=== PATIENT | female | born 1965 | race Caucasian/White ===

== ENCOUNTER 2017-11-14 05:30 | Emergency (ER) | payer MEDICAID ==
[~2017-11-14] VITALS: Ht 160 cm; Wt 80.3 kg
[2017-11-14 05:38] VITALS: Ht 160 cm; Wt 80.3 kg
[2017-11-14 06:21] VITALS: BP 131/75
== END 2017-11-14 06:21 | disposition home or self-care (01) ==
LOC: ED 05:30
DX: L50.0 Allergic urticaria (principal)
CPT/HCPCS: J7512

== ENCOUNTER 2017-11-19 22:17 | Emergency (ER) | payer MEDICAID ==
[~2017-11-19] VITALS: Ht 160 cm; Wt 81.8 kg
[2017-11-19 22:58] VITALS: Ht 160 cm; Wt 81.8 kg
[2017-11-20 00:03] VITALS: BP 131/77
== END 2017-11-20 00:03 | disposition home or self-care (01) ==
LOC: ED 22:17
DX: R21 Rash and other nonspecific skin eruption (principal)
CPT/HCPCS: J7512

== ENCOUNTER 2020-06-28 11:03 | Emergency (ER) | payer MEDICAID ==
[~2020-06-28] VITALS: Ht 157.5 cm; Wt 85.3 kg
[2020-06-28 13:05] LABS: BASOPHIL % 0.5 % (0-2); PLATELET COUNT 290 x10^3mcL (130-400)
[2020-06-28 13:06] LABS: CALCIUM 9.6 mg/dL (8.5-10.1); CARBON DIOXIDE 27.3 mmol/L (21-32); CHLORIDE SERUM 106 mmol/L (98-107); CREATININE SERUM 0.5 mg/dL (0.6-1.0); GFR1 > 60 mL/min; GLUCOSE SERUM 91 mg/dL (74-106); POTASSIUM SERUM 3.7 mmol/L (3.5-5.1); SODIUM SERUM 142 mmol/L (136-145)
[2020-06-28 13:19] LABS: ALKALINE PHOSPHATASE 78 U/L (46-116); ALT/SGPT 33 U/L (14-59); AST/SGOT 17 U/L (15-37); BILIRUBIN TOTAL 0.32 mg/dL (0.20-1.00); TOTAL PROTEIN, SERUM 8.1 g/dL (6.4-8.2)
[2020-06-28 15:16] VITALS: BP 144/77
== END 2020-06-28 15:16 | disposition home or self-care (01) ==
LOC: ED 11:03
PROVIDERS: Student in an Organized Health Care Education/Training Program
DX: R42 Dizziness and giddiness (principal); R53.81 Other malaise; F43.9 Reaction to severe stress, unspecified; Z98.890 Other specified postprocedural states
CPT/HCPCS: 82962